=== PATIENT | female | born 1985 | race African-American/Black ===

== ENCOUNTER → 2021-07-27 | Outpatient (CLI) | payer BC, OTHER ==
[~2021-07-27] MED LIST: CLARITIN10 M3 PO
[2021-07-27 11:58] VITALS: BP 95/53
[2021-07-27 13:50] VITALS: BP 100/50
--- NOTE | 2021-07-27 14:52 | NUR ---
ARRIVED AMBULATORY FOR FIRST DOSE OF INJECTAFER. DIFFICULT IV START. PAGED VASCULAR ACCESS TEAM TO SART IV. BETADINE USED TO CLEAN SKIN PRIOR TO IV START DUE TO ALLERGY TO ISOPROPYL ALCOHOL. ALSO HAD SLIGHT SENSITIVITY AT IV SITE AT THE COMPLETION OF THE INFUSION. NO PHLEBITIS NOTED. WAITED 30 MINTUES. POST INFUSION BP 100/50. IV WAS D'CD AND PATIENT LEFT AMBULATORY IN STABLE CONDITION. GIVEN MED SHEET ON INJECTAFER. VOICED NO QUESTIONS. NEXT APPOINTMENT SCHEDULED FOR NEXT. IV THERAPY HERE NEXT FRIDAY FROM 04-18. [facility] NOTIFIED.
== END ==
LOC: OPONC 09:07
PROVIDERS: ATTEND Family Medicine
DX: D50.9 Iron deficiency anemia, unspecified (principal); N92.0 Excessive and frequent menstruation with regular cycle
CPT/HCPCS: 95000

== ENCOUNTER → 2021-08-03 | Outpatient (CLI) | payer BC, OTHER ==
[2021-08-03 12:10] VITALS: BP 96/44
[2021-08-03 12:51] VITALS: BP 98/58
[2021-08-03 13:20] VITALS: BP 100/60
--- NOTE | 2021-08-03 13:30 | NUR ---
HERE FOR 2ND INJECTAFER INFUSION. STATES SHE IS ALREADY FEELING MUCH BETTER AFTER THE 1ST INFUSION. STATES HAD NO NOTED SIDE EFFECTS FROM THE INFUSION OTHER THAN SOME VEIN SORENESS TOWARD THE END OF THE INFUSION THAT RESOLVED ONCE MEDICATION WAS COMPLETED. SAME THING HAPPENED TODAY. ARM/VEIN SOFT, NO S/S INFILTRATION. IV STARTED BY IV TEAM NURSE, ZAHRAA, PT HAS POOR VENOUS ACCESS. OTHER THAN SOME SORENESS THAT RESOLVED, PT TOLERATED INFUSION TODAY WITHOUT INCIDENT, NO S/S REACTION. VSS. ADVISED PT TO F/U WITH DR. PUENTES TO HAVE LABS DRAWN EARLY NEXT YEAR TO SEE WHERE SHE STANDS WITH IRON LEVELS AND HGB. ALSO ADVISED TO MONITOR PERIODS AND REPORT IF THEY REMAIN HEAVY. DISMISSED IN STABLE CONDITION.
== END ==
LOC: OPONC 11:21
PROVIDERS: ATTEND Family Medicine
DX: D50.9 Iron deficiency anemia, unspecified (principal); N92.0 Excessive and frequent menstruation with regular cycle
CPT/HCPCS: 95000